=== PATIENT | female | born 2005 | race Caucasian/White ===

== ENCOUNTER 2025-05-21 12:33 | Outpatient (CLI) | payer SELFPAY ==
[2025-05-21 15:31] LABS: Bacterial Vaginosis* Negative (Negative); Candida glab/krus NOT DETECTED (No Detected)
[2025-05-22 00:55] LABS: GC DNA Amplified* NOT DETECTED (No Detected)
[2025-05-22 01:21] LABS: Chlamydia DNA Amplified* DETECTED (No Detected)
[2025-05-29 10:24] LABS: Pap Test Reviewed by Path Done; Pap Test Screened Manually Done
== END 2025-05-21 12:34 | disposition home or self-care (01) ==
PROVIDERS: PCP Pediatrics; Visit Provider Registered Nurse
DX: Z11.3 Encounter for screening for infections with a predominantly sexual mode of transmission (principal); Z12.4 Encounter for screening for malignant neoplasm of cervix; Z11.51 Encounter for screening for human papillomavirus (HPV); Z13.6 Encounter for screening for cardiovascular disorders; Z13.1 Encounter for screening for diabetes mellitus
CPT/HCPCS: 80061; 81513; 87481; 87491; 87591; 87624; 87625; 87661; 88141; 88142; 88175